=== PATIENT | female | born 1965 | race Caucasian/White ===

== ENCOUNTER 2023-06-14 16:27 | Inpatient (IN) | payer MEDICARE, OTHER ==
[~2023-06-14] VITALS: Ht 160 cm; Wt 73.1 kg
[~2023-06-14 16:27] MED LIST: ALPR1; Bactrim Ds Tab1 EACH PO; CIPR500 PO; CYCL10 PO; Citrate Of Mag300 ML PO; DANA200 PO; DIAZ5 PO; DULO30; DULO60 PO; Dulcolax5 MG PO; GABA300 PO; HYDACE10B PO; HYDACE5; HYDACE5 PO; METH10 PO; Miralax17 GM PO; NAPR500 PO; OXYACE5T PO; OXYC10ER PO; OXYMORPHONE HCL10 MG PO; PARO20 PO; PROACE100; PROM25 PO; Pyridium200 MG PO; SOMA350 MG PO; TRAM50 PO; TRAZ100
[2023-06-14 17:43] LABS: BASOPHILS ABSOLUTE AUTO 0.14 K/mm3 (0.00-0.23); BASOPHILS PERCENT AUTO 1 % (0-2); EOSINOPHILS PERCENT AUTO 0 % (0-6); Hemoglobin 19.9 g/dL (11.5-16.0); IMMATURE GRAN ABSOLUTE AUTO 0.39 K/mm3 (0.00-0.10); IMMATURE GRAN PERCENT AUTO 2 % (0-1); LYMPHOCYTES PERCENT AUTO 8 % (21-46); MONOCYTES PERCENT AUTO 11 % (4-13); Mean Corpuscular HGB Conc 33.3 g/dL (31.5-36.5); Mean Corpuscular Volume 90 fL (80-100); NEUTROPHILS ABSOLUTE AUTO 18.49 K/mm3 (1.96-9.15); NEUTROPHILS PERCENT AUTO 79 % (41-73); Platelet Count 207 K/mm3 (150-400); RDW Standard Deviation 45.4 fL (35.1-46.3); Red Blood Cell Count 6.63 M/mm3 (3.80-5.20); White Blood Cell Count 23.42 K/mm3 (4.00-11.30)
[2023-06-14 17:46] LABS: Hematocrit 59.7 % (33.0-51.0)
[2023-06-14 17:51] LABS: Albumin, Blood 2.8 g/dL (3.4-5.0); Albumin/Globulin Ratio 0.8 (0.8-1.8); Bilirubin, Total 0.9 mg/dL (0.1-1.0); Calcium, Blood 9.1 mg/dL (8.5-10.1); Creatinine, Blood 2.59 mg/dL (0.40-1.00); Globulin, Blood 3.3 g/dL (2.2-4.0); Potassium, Blood 5.3 mmol/L (3.5-5.5); Total Protein, Blood 6.1 g/dL (6.4-8.2)
[2023-06-14 17:56] LABS: Source, Urine Fem Cath
[2023-06-14 18:03] LABS: Appearance, Urine Cloudy (Clear); Blood, Urine 5+ (Neg); Color, Urine Amber (P-Yellow); Glucose Qualitative, Urine Neg (Neg); Ketones, Urine 2+ (Neg); Leukocyte Esterase, Urine 1+ (Neg); Nitrite, Urine Pos (Neg); Protein, Urine 3+ (Neg); Specific Gravity, Urine 1.025 (1.003-1.022); Urobilinogen, Urine 2+ (Normal)
[2023-06-14 18:10] LABS: Bilirubin, Urine 2+ (Neg)
[2023-06-14 18:13] LABS: Bacteria Many /hpf; Squamous Epithelial Cells Not Seen /hpf (Few); Transitional Epithelial Cells Rare /hpf (0-Rare)
[2023-06-14 18:31] LABS: Base Excess Venous -1.4 mmol/L; Bicarbonate Venous 22.6 mmol/L (24.0-30.0); PCO2 Venous 43.4 mmHg (38-42); pH Blood Venous 7.35 (7.34-7.37)
[2023-06-14 18:51] LABS: U Buprenorphine Screen DETECTED; U Cannabinoids Screen DETECTED; U Opiates Screen DETECTED
[2023-06-14 18:52] LABS: U Amphetamine Screen Not Detected; U Barbituate Screen Not Detected; U Benzodiazapine Screen Not Detected; U Cocaine Screen Not Detected; U Methadone Screen Not Detected; U Methamphetamine Screen Not Detected; U Oxycodone Screen Not Detected; U Phencyclidine Screen Not Detected
[2023-06-14] MEDS ORDERED: PHENA200 PO (21:17)
[2023-06-14] MEDS ORDERED: Cipro500 MG PO (21:18)
[2023-06-14] MEDS ORDERED: HYDROCODONE-AC1 EAC7 PO (21:20)
[2023-06-14] MEDS ORDERED: BUPRENORPHINE HC2 MG SL (21:24)
[2023-06-14 21:33] LABS: Influenza A, PCR NEGATIVE (NEGATIVE); Influenza B, PCR NEGATIVE (NEGATIVE); Resp Syncytial Virus, PCR NEGATIVE (NEGATIVE); SARS-Cov-2 (COVID-19) PCR, MMC NEGATIVE (NEGATIVE)
[2023-06-14 22:40] VITALS: BP 185/104
[2023-06-14 22:45] VITALS: BP 164/109
[2023-06-14 23:01] VITALS: BP 167/92
--- NOTE | 2023-06-14 23:11 | NUR ---
ARRIVAL TO UNIT AFTER RECEIVING REPORT FROM [facility] RN, PATIENT TRANSFERRED TO UNIT AT APPROX 2225. TRANSFERRED TO HOSPITAL BED VIA SLIDER SHEET. PATIENT YELLING LOUDLY WITH ANY STIMULI, NOT ABLE TO ANSWER QUESTIONS. NOT ABLE TO ORIENT TO CURRENT SITUATION. TELEMETRY SHOWING SINUS TACH 100's-110's. BP ELEVATED, SBP 160's-180's. IV HYDRALAZINE ADMINISTERED PER EMAR. BP DECREASE, SBP 160's. IS ON 4L VIA NASAL CANNULA, SATS 90-92%. COMPLETE BEDBATH PERFORMED. DRY, CRACKING SKIN TO LIPS, EYES. ORAL CARE PROVIDED. SCATTERED BRUISING THROUGHOUT, PICTURES OBTAINED. SEE CHART. ATTENDS PLACED. IVF AND ABX INFUSING PER EMAR. BED ALARM ON. CALL LIGHT IN REACH.
[2023-06-14 23:19] VITALS: BP 163/103
--- NOTE | 2023-06-14 23:36 | NUR ---
PATIENT's STEP-FATHER, AILIN, TO BEDSIDE. THIS RN PROVIDED UPDATE REGARDING PLAN OF CARE. AILIN REPORTING THAT THE PATIENT WAS PRESCRIBED AN ANTIBIOTIC LAST WEEK FOR A UTI. HE HAD CALLED HER LAST NIGHT, AND SHE DID NOT ANSWER THE PHONE. HE ASSUMED SHE WAS SLEEPING, AND CAME OVER THE NEXT DAY (TODAY) TO CHECK ON HER. IN WHICH, SHE WAS FOUND DOWN ON THE TOILET. PATIENT IS NORMALLY ALERT, INDEPENDENT AT BASELINE.
[2023-06-14] MEDS ORDERED: DULO60 (23:46)
[2023-06-14] MEDS ORDERED: GABA300 PO (23:47)
[2023-06-14] MEDS ORDERED: Carisoprodol350 MG PO (23:47)
[2023-06-14] MEDS ORDERED: OXYMORPHONE HCL10 MG PO (23:47)
[2023-06-14] MEDS ORDERED: PROM25 PO (23:48)
[2023-06-14] MEDS ORDERED: POLYETHYLENE G500 G1 (23:48)
[2023-06-14] MEDS ORDERED: SULTRIDS PO (23:48)
[2023-06-14] MEDS ORDERED: DANA200 PO (23:48)
[2023-06-14] MEDS ORDERED: MAGCIT300 PO (23:49)
--- NOTE | 2023-06-14 23:56 | NUR ---
LIMITED ADMISSION HISTORY DUE TO ALTERED MENTAL STATUS. GATHERED INFORMATION FROM INFORMATION PROVIDED FROM HER STEP-FATHER, AILIN AND ED ELECTRONIC RECORDS.
[2023-06-15] VITALS (9 sets, daily range): BP systolic 109–181; BP diastolic 87–107
--- NOTE | 2023-06-15 01:21 | NUR ---
BANERJEE TO EVALUATE PATIENT. THIS RN NOTIFIED OF ELEVATED BLOOD PRESSURE. NO NEW ORDERS RECEIVIED AT THIS TIME, SUSPECTS ELEVATED BLOOD PRESSURE TO BE RELATED TO DISTRESS THAT OCCURS WITH ANY STIMULI. MD REQUESTING CROOK CATHETER TO BE PLACED FOR STRICT I/O's DUE TO DEHYDRATION. WILL PLACE PER ORDER.
[2023-06-15 02:07] LABS: BASOPHILS ABSOLUTE AUTO 0.17 K/mm3 (0.00-0.23); BASOPHILS PERCENT AUTO 1 % (0-2); EOSINOPHILS ABSOLUTE AUTO 0.11 K/mm3 (0.00-0.68); EOSINOPHILS PERCENT AUTO 1 % (0-6); Hemoglobin 19.7 g/dL (11.5-16.0); IMMATURE GRAN ABSOLUTE AUTO 0.25 K/mm3 (0.00-0.10); IMMATURE GRAN PERCENT AUTO 1 % (0-1); LYMPHOCYTES ABSOLUTE AUTO 1.52 K/mm3 (0.84-5.20); LYMPHOCYTES PERCENT AUTO 7 % (21-46); MONOCYTES ABSOLUTE AUTO 1.85 K/mm3 (0.16-1.47); MONOCYTES PERCENT AUTO 8 % (4-13); Mean Corpuscular HGB Conc 33.7 g/dL (31.5-36.5); Mean Corpuscular Volume 89 fL (80-100); Mean Platelet Volume 10.1 fL (9.1-12.4); NEUTROPHILS ABSOLUTE AUTO 18.01 K/mm3 (1.96-9.15); NEUTROPHILS PERCENT AUTO 82 % (41-73); Platelet Count 198 K/mm3 (150-400); RDW Coefficient Variation 14.1 % (11.7-14.2); RDW Standard Deviation 44.4 fL (35.1-46.3); Red Blood Cell Count 6.56 M/mm3 (3.80-5.20); White Blood Cell Count 21.91 K/mm3 (4.00-11.30)
[2023-06-15 02:12] LABS: Source, Urine Foley catheter
[2023-06-15 02:14] LABS: Hematocrit 58.5 % (33.0-51.0)
[2023-06-15 02:22] LABS: Bilirubin, Urine Neg (Neg); Blood, Urine 5+ (Neg); Glucose Qualitative, Urine 1+ (Neg); Ketones, Urine Neg (Neg); Leukocyte Esterase, Urine Neg (Neg); Nitrite, Urine Neg (Neg); Protein, Urine 2+ (Neg); Urobilinogen, Urine NORM (Normal)
[2023-06-15 02:22] LABS: Albumin, Blood 2.4 g/dL (3.4-5.0); Albumin/Globulin Ratio 0.6 (0.8-1.8); Bilirubin, Total 0.6 mg/dL (0.1-1.0); Bun/Creatinine Ratio 23.1 (12.0-20.0); Calcium, Blood 8.7 mg/dL (8.5-10.1); Creatinine, Blood 2.08 mg/dL (0.40-1.00); Globulin, Blood 3.8 g/dL (2.2-4.0); Potassium, Blood 5.1 mmol/L (3.5-5.5); Total Protein, Blood 6.2 g/dL (6.4-8.2)
[2023-06-15 02:30] LABS: Appearance, Urine Hazy (Clear); Color, Urine Amber (P-Yellow)
[2023-06-15 02:31] LABS: Bacteria Few /hpf; Red Blood Cells, Urine 0-2 /hpf (0-2); Squamous Epithelial Cells Not Seen /hpf (Few); White Blood Cells, Urine 0-2 /hpf (0-5)
[2023-06-15 05:13] LABS: Bun/Creatinine Ratio 24.9 (12.0-20.0); Calcium, Blood 8.4 mg/dL (8.5-10.1); Creatinine, Blood 1.97 mg/dL (0.40-1.00); Potassium, Blood 4.9 mmol/L (3.5-5.5)
--- NOTE | 2023-06-15 05:34 | NUR ---
SHIFT SUMMARY NO ACUTE CHANGES SINCE PREVIOUS NOTES. PATIENT CONTINUING TO ALTERNATE BETWEEN PERIODS OF SLEEP AND LOUDLY YELLING OUT. PATIENT IS BEGINNING TO RECOGNIZE HER NAME, AND MUMBLE OUT SMALL WORDS, SUCH "HEY," BUT UNABLE TO REORIENT OR CONSOLE WHILE YELLING. SEE PREVIOUS NOTE REGARDING ELEVATED BP. PATIENT TENDS TO EXPERIENCE INCREASED DISTRESS WHILE OBTAINING BLOOD PRESSURE, SBP 160's. ABLE TO OBTAIN BLOOD PRESSURE ONCE WITHOUT CAUSING DISTRESS, SBP 110's. TELEMETRY SHOWING SINUS 90's-100's AT REST, RATE INCREASE 110's WITH YELLING. REMAINS ON 4L VIA NASAL CANNULA, SATS >92%. PATIENT BEGINNING TO MOVE HERSELF MORE IN BED, IS NOT PULLING AT LINES/DEVICES OR ATTEMPTING TO GET OUT OF BED OF THIS TIME. CROOK CATHETER IN PLACE, DRAINING SMALL AMOUNTS OF DARK LIANG URINE WITH SEDIMENT. MADE AWARE WHILE ROUNDING. IVF INFUSING AT 75ML/HR. SMALL SMEAR BM THIS SHIFT. ATTENDS IN PLACE, CHANGING NEEDED TO KEEP C/D/I. BED ALARM ON. WILL REPORT TO ONCOMING RN.
--- NOTE | 2023-06-15 16:50 | NUR ---
SHIFT SUMMARY: PT RESPONSIVE TO VERBAL/PAINFUL SITMULI MAJORITY OF THE SHIFT. CONTINUING TO YELL OUT, UNABLE TO TELL THIS RN ORIENTATION QUESTIONS. APPROX 1500 PT CONTINUING TO YELL, NOW ABLE TO ANSWER ORIENTATION QUESTIONS. ABLE TO TELL THIS RN NAME, , AND LOCATION. PT UNAWARE REASON FOR ADMISSION, DOES NOT RECALL EVENTS PRIOR. STRENGTH WEAK, EQUAL BILATERALLY. PT HYPERTENSIVE THROUGHOUT THE DAY, MEDICATED WITH PRN HYDRALAZINE PER EMAR, HR SR 90'S, AFEBRILE, SPO2 >94% ON 2L NC. RESPIRATIONS EVEN AND UNLABORED AT REST. PULSES STRONG AND EQUAL THROGHOUT. PT WITH HX OF ANGIOEDEMA, NO FACIAL SWELLING NOTED THIS SHIFT. REPOS Q2 TO MAINTAIN SKIN INTEGRITY. CROOK CATH REMAINS IN PLACE, PATENT AND DRAINING LIANG COLORED URINE TO GRAVITY. NO BM. STEP DAD IN THIS AFTERNOON AND UPDATED ON PT CARE. PT REMAINS NPO DUE TO ASPIRATION RISK. BED ALARM ON FOR SAFETY, BED IN LOW, CALL LIGHT IN REACH, WILL REPORT TO ONCOMING RN.
[2023-06-16 04:58] VITALS: BP 142/87
--- NOTE | 2023-06-16 06:24 | NUR ---
SHIFT SUMMARY ASSUMED CARE OF PT AT 1900. PT WAS VERY DROWSEY AT START OF SHIFT BUT STARTED TO AWAKEN. AT 2300 PT STEP FATHER CAME TO BED AND PT WAS FULLY A/OX4 AND TALKING. PT UNDATED ON CONDITION AND EVENTS. PT UNABEL TO REMEMBER EVENTS FULLY. HOSPITALIST EXPRESSED CONCERNS OF PT POSSIBLY GOING THROUGH WITHDRAWL. ORDRED MEDICATIONS PER EMAR. PT EXPRESSED SAME CONCERNED AND FELT BETTER AFTER MEDICATIONS.
[2023-06-16 08:14] LABS: BASOPHILS ABSOLUTE AUTO 0.08 K/mm3 (0.00-0.23); BASOPHILS PERCENT AUTO 1 % (0-2); EOSINOPHILS ABSOLUTE AUTO 0.03 K/mm3 (0.00-0.68); EOSINOPHILS PERCENT AUTO 0 % (0-6); Hemoglobin 16.4 g/dL (11.5-16.0); IMMATURE GRAN PERCENT AUTO 1 % (0-1); LYMPHOCYTES ABSOLUTE AUTO 1.38 K/mm3 (0.84-5.20); LYMPHOCYTES PERCENT AUTO 8 % (21-46); MONOCYTES ABSOLUTE AUTO 1.54 K/mm3 (0.16-1.47); MONOCYTES PERCENT AUTO 9 % (4-13); Mean Corpuscular HGB Conc 33.5 g/dL (31.5-36.5); Mean Corpuscular Volume 90 fL (80-100); Mean Platelet Volume 10.5 fL (9.1-12.4); NEUTROPHILS ABSOLUTE AUTO 13.48 K/mm3 (1.96-9.15); NEUTROPHILS PERCENT AUTO 81 % (41-73); Platelet Count 167 K/mm3 (150-400); RDW Coefficient Variation 14.2 % (11.7-14.2); RDW Standard Deviation 45.9 fL (35.1-46.3); Red Blood Cell Count 5.46 M/mm3 (3.80-5.20); White Blood Cell Count 16.61 K/mm3 (4.00-11.30)
[2023-06-16 08:40] VITALS: BP 130/84
[2023-06-16 09:19] LABS: Bun/Creatinine Ratio 35.6 (12.0-20.0); Calcium, Blood 8.4 mg/dL (8.5-10.1); Creatinine, Blood 1.04 mg/dL (0.40-1.00); Potassium, Blood 4.3 mmol/L (3.5-5.5)
[2023-06-16 17:19] VITALS: BP 137/91
--- NOTE | 2023-06-16 17:39 | NUR ---
PATIENT ARRIVED TO UNIT AT THIS TIME. PATIENT IS A&OX4. SHE IS ON 2L NC WITH >90% OXYGEN SATS. PATIENT REPORTS "BURNING" WHEN SHE VOIDS WHICH IS MANAGED WITH HER PO URINARY PAIN RELIEF PILL WELL RECIEVING IV ABX. SHE IS TOLERATING HER CLEAR LIQUIDS DIET. HER ABD IS DISTENDED BUT HAS HYPERACTIVE BOWEL TONES. SHE REPORTS "THIS IS NORMAL FOR ME BECAUSE OF MY ANGIOEDEMA". DENIES NAUSEA OR VOMITING. SHE IS A SBA WITH FWW AND GAIT BELT TO THE BATHROOM. PATIENT IS LAYING IN BED WITH CALL LIGHT IN REACH AND FAMILY AT BEDSIDE.
[2023-06-16 19:31] VITALS: BP 159/84
[2023-06-17 03:04] VITALS: BP 165/97
[2023-06-17 03:59] VITALS: BP 154/89
[2023-06-17 04:50] LABS: BASOPHILS ABSOLUTE AUTO 0.07 K/mm3 (0.00-0.23); BASOPHILS PERCENT AUTO 1 % (0-2); EOSINOPHILS ABSOLUTE AUTO 0.03 K/mm3 (0.00-0.68); EOSINOPHILS PERCENT AUTO 0 % (0-6); Hematocrit 50.1 % (33.0-51.0); Hemoglobin 16.3 g/dL (11.5-16.0); IMMATURE GRAN ABSOLUTE AUTO 0.08 K/mm3 (0.00-0.10); IMMATURE GRAN PERCENT AUTO 1 % (0-1); LYMPHOCYTES ABSOLUTE AUTO 1.34 K/mm3 (0.84-5.20); LYMPHOCYTES PERCENT AUTO 10 % (21-46); MONOCYTES PERCENT AUTO 9 % (4-13); Mean Corpuscular HGB 29.4 pg (26.0-34.0); Mean Corpuscular HGB Conc 32.5 g/dL (31.5-36.5); Mean Corpuscular Volume 90 fL (80-100); Mean Platelet Volume 10.5 fL (9.1-12.4); NEUTROPHILS PERCENT AUTO 81 % (41-73); Platelet Count 190 K/mm3 (150-400); RDW Coefficient Variation 13.9 % (11.7-14.2); RDW Standard Deviation 46.5 fL (35.1-46.3); Red Blood Cell Count 5.54 M/mm3 (3.80-5.20); White Blood Cell Count 14.02 K/mm3 (4.00-11.30)
[2023-06-17 05:22] LABS: Albumin, Blood 2.4 g/dL (3.4-5.0); Albumin/Globulin Ratio 0.7 (0.8-1.8); Bilirubin, Total 0.7 mg/dL (0.1-1.0); Bun/Creatinine Ratio 25.9 (12.0-20.0); Calcium, Blood 8.8 mg/dL (8.5-10.1); Creatinine, Blood 0.85 mg/dL (0.40-1.00); Globulin, Blood 3.3 g/dL (2.2-4.0); Total Protein, Blood 5.7 g/dL (6.4-8.2)
--- NOTE | 2023-06-17 05:33 | NUR ---
SHIFT SUMMARY NOC. PT A/O X4 THIS SHIFT. PT IS AFEBRILE AND VITALS STABLE. PT REPORTS DYSURIA IMPROVED WITH MEDICATION AND IS VOIDING. PT TOLERATING CLEAR LIQUIDS. PT HAS MODERATE ABDOMINAL DISTENTION WITH TENDERNESS. CT OF ABD AND PELVIS ORDERED AND TO BE DONE LATER THIS AM. PT REPORTED MILD SOB ON EXERTION, PT DOES NOT DESAT ON 2 LITERS VIA N/C. PT RESTED WITH EYES CLOSED AND CALL LIGHT IN REACH.
[2023-06-17 07:15] VITALS: BP 147/93
[2023-06-17 16:52] VITALS: BP 163/94
[2023-06-17 17:58] VITALS: BP 138/99
[2023-06-17 19:08] VITALS: BP 156/88
--- NOTE | 2023-06-17 20:01 | NUR ---
PT HAS BEEN STABLE THIS SHIFT. HYPERTENSIVE AT TIMES BUT NEVER REQUIRING PRN BP MEDS. PT AMBULATORY IN ROOM AND HALLWAY. PT STARTED ON BOWEL CARE WITH BM X2 TODAY, DARK BROWN. PT VOIDING WELL WITH SLIGHT DYSURIA. IV SL PER ORDERS. DIET TO ADVANCE TOLERATED. FL DINNER MONIQUE WELL. PAIN CONTROLLED WITH SCHEDULED MEDS. USES CALL LIGHT APPROPRIATELY PRN.
[2023-06-18 02:25] VITALS: BP 144/85
[2023-06-18 05:25] LABS: BASOPHILS ABSOLUTE AUTO 0.08 K/mm3 (0.00-0.23); BASOPHILS PERCENT AUTO 1 % (0-2); EOSINOPHILS ABSOLUTE AUTO 0.07 K/mm3 (0.00-0.68); EOSINOPHILS PERCENT AUTO 1 % (0-6); Hematocrit 48.8 % (33.0-51.0); Hemoglobin 16.2 g/dL (11.5-16.0); IMMATURE GRAN ABSOLUTE AUTO 0.16 K/mm3 (0.00-0.10); IMMATURE GRAN PERCENT AUTO 1 % (0-1); LYMPHOCYTES ABSOLUTE AUTO 1.68 K/mm3 (0.84-5.20); LYMPHOCYTES PERCENT AUTO 12 % (21-46); MONOCYTES ABSOLUTE AUTO 1.34 K/mm3 (0.16-1.47); MONOCYTES PERCENT AUTO 10 % (4-13); Mean Corpuscular HGB 30.1 pg (26.0-34.0); Mean Corpuscular HGB Conc 33.2 g/dL (31.5-36.5); Mean Corpuscular Volume 91 fL (80-100); Mean Platelet Volume 10.5 fL (9.1-12.4); NEUTROPHILS ABSOLUTE AUTO 10.78 K/mm3 (1.96-9.15); NEUTROPHILS PERCENT AUTO 76 % (41-73); Platelet Count 236 K/mm3 (150-400); RDW Coefficient Variation 13.7 % (11.7-14.2); RDW Standard Deviation 45.6 fL (35.1-46.3); Red Blood Cell Count 5.38 M/mm3 (3.80-5.20); White Blood Cell Count 14.11 K/mm3 (4.00-11.30)
[2023-06-18 07:10] VITALS: BP 135/91
--- NOTE | 2023-06-18 07:39 | NUR ---
SHIFT SUMMARY NOC. PT A/O X4. PT VOIDING URINE AND TOLERATING FULL LIQUID DIET. NO BM THIS SHIFT, PT REPORTS PASSING GAS PER RECTUM. PT AMBULATING IN THE ROOM. PT REPORT NICOTINE CRAVINGS SHE SMOKES 1PPD AT BASELINE. PT VERBALIZED WANTING TO QUIT AND RECEIVE ORDERS FOR NICOTINE PATCH. PASSED THIS ON TO DAY SHIFT RN AND VERBALIZED FOLLOWING UP. PT RESTED WITH EYES CLOSED AND CALL LIGHT IN REACH.
[2023-06-18] MEDS ORDERED: NICO21TP TOP (12:05)
--- NOTE | 2023-06-18 12:59 | NUR ---
DISCHARGE SUMMARY S/P SBO, A/OX4, VSS, TOLERATING PO, VOIDING WELL YELLOW URINE THAT IS PAID SEARCH SPECIALIST THAN IT WAS AT TIME OF ADMISSION, INDEPENDENT IN THE ROOM, HAVING MULTIPLE BM'S PER NOC RN REPORT. DISCUSSED DISCHARGE INSTRUCTIONS WITH THE PATIENT INCLUDING HOME CARE, MEDICATIONS WHICH WERE FAXED TO [facility] PER PT REQUEST, AND FOLLOW UP WITH HER PRIMARY CARE PROVIDER WITHIN 1 WEEK PER ATTENDING INSTRUCTIONS. IV ACCESS REMOVED, NO QUESTIONS AT THIS TIME, ESCORTED OUT VIA WC TO PRIVATE AUTO TO GO HOME.
== END 2023-06-18 12:01 | disposition home or self-care (01) | DRG 871 ==
LOC: ER 16:27 → PCU 21:28 → SURS 21:28 → PCU 22:24 → SURS 06-16 16:50
PROVIDERS: Emergency Medicine; Family Medicine; Hospitalist; Student in an Organized Health Care Education/Training Program; ADMIT Internal Medicine
DX: A41.9 Sepsis, unspecified organism (principal); G92.8 Other toxic encephalopathy; J18.9 Pneumonia, unspecified organism; N17.9 Acute kidney failure, unspecified; N39.0 Urinary tract infection, site not specified; E87.21 Acute metabolic acidosis; S36.119A Unspecified injury of liver, initial encounter; M62.82 Rhabdomyolysis; R65.20 Severe sepsis without septic shock; I10 Essential (primary) hypertension; G89.29 Other chronic pain; F32.9 Major depressive disorder, single episode, unspecified; D84.1 Defects in the complement system; R79.89 Other specified abnormal findings of blood chemistry; R74.8 Abnormal levels of other serum enzymes; Z11.52 Encounter for screening for COVID-19; Z79.2 Long term (current) use of antibiotics; Z79.891 Long term (current) use of opiate analgesic; Z79.899 Other long term (current) drug therapy; Z88.7 Allergy status to serum and vaccine; Z87.891 Personal history of nicotine dependence; Z90.89 Acquired absence of other organs; Z98.890 Other specified postprocedural states; X58.XXXA Exposure to other specified factors, initial encounter
CPT/HCPCS: 0241U; 36415; 70450; 71045; 74176; 80048; 80053; 81001; 82140; 82550; 82803; 83605; 83690; 83880; 84145; 85025; 87040; 87086; 93005; 93010; 93306; 96361; 96365; 99285-25; A9270; J0360; J0456; J0696; J1200; J1650; J3411; J7030; J7050; J7120; P9612

== ENCOUNTER 2024-09-30 16:09 | Day surgery (SDC) | payer MEDICARE, OTHER ==
[~2024-09-30 16:09] MED LIST changes: +BUPRENORPHINE HC2 MG SL; +Carisoprodol350 MG PO; +Cipro500 MG PO; +DULO60; +HYDROCODONE-AC1 EAC7 PO; +MAGCIT300 PO; +NICO21TP TOP; +PHENA200 PO; +POLYETHYLENE G500 G1; +SULTRIDS PO
== END 2024-09-30 22:30 | disposition home or self-care (01) ==
LOC: RAD 16:09
DX: M17.0 Bilateral primary osteoarthritis of knee (principal); M41.9 Scoliosis, unspecified
CPT/HCPCS: 36415; 73562-LT; 73562-RT; 80053; 80061; 81001; 84443; 84481; 85025; 87077; 87086; 87186

== ENCOUNTER 2025-03-23 22:05 | Inpatient (IN) | payer MEDICARE, OTHER ==
[~2025-03-23] VITALS: Ht 175.3 cm; Wt 94.6 kg
[~2025-03-23 22:05] MED LIST changes: -POLYETHYLENE G500 G1; +POLYETHYLENE G500 G1 PO
[2025-03-23] MEDS ORDERED: Tranexamic Acid 100 ML IV ONE (22:20)
[2025-03-23 22:32] LABS: pH Blood Venous 7.31 (7.34-7.37)
[2025-03-23 22:35] LABS: BASOPHILS ABSOLUTE AUTO 0.10 K/mm3 (0.00-0.23); BASOPHILS PERCENT AUTO 1 % (0-2); EOSINOPHILS ABSOLUTE AUTO 0.18 K/mm3 (0.00-0.68); EOSINOPHILS PERCENT AUTO 2 % (0-6); Hematocrit 55.5 % (33.0-51.0); Hemoglobin 17.4 g/dL (11.5-16.0); IMMATURE GRAN ABSOLUTE AUTO 0.06 K/mm3 (0.00-0.10); IMMATURE GRAN PERCENT AUTO 1 % (0-1); LYMPHOCYTES ABSOLUTE AUTO 3.26 K/mm3 (0.84-5.20); LYMPHOCYTES PERCENT AUTO 34 % (21-46); MONOCYTES ABSOLUTE AUTO 0.81 K/mm3 (0.16-1.47); MONOCYTES PERCENT AUTO 9 % (4-13); Mean Corpuscular HGB Conc 31.4 g/dL (31.5-36.5); Mean Corpuscular Volume 92 fL (80-100); NEUTROPHILS ABSOLUTE AUTO 5.09 K/mm3 (1.96-9.15); NEUTROPHILS PERCENT AUTO 54 % (41-73); NRBC ABSOLUTE 0.00 K/mm3 (0.00-0.02); NRBC Auto 0.0 /100 WBC (0.0-0.2); Platelet Count 445 K/mm3 (150-400); RDW Coefficient Variation 13.6 % (11.7-14.2); RDW Standard Deviation 46.1 fL (35.1-46.3)
[2025-03-23] MEDS ORDERED: Midazolam HCL 50 MG in NS 40 ML IV PRN (22:35)
[2025-03-23 22:46] LABS: Alanine Aminotransfer (ALT/SGP 38.0 U/L (12-78); Albumin, Blood 4.1 g/dL (3.4-5.0); Albumin/Globulin Ratio 1.1 (0.8-1.8); Anion Gap 6.0 mmol/L (3-11); Aspartate Aminotrans (AST/SGOT 34.0 U/L (12-37); Bilirubin, Total 0.5 mg/dL (0.1-1.0); Blood Urea Nitrogen 10.0 mg/dL (8-24); CO2, Blood 34.0 mmol/L (21-32); Calcium, Blood 9.8 mg/dL (8.5-10.1); Chloride, Blood 100.0 mmol/L (98-108); Creatinine, Blood 0.75 mg/dL (0.40-1.00); Globulin, Blood 3.8 g/dL (2.2-4.0); Glucose, Blood 149.0 mg/dL (70-99); Potassium, Blood 4.0 mmol/L (3.5-5.5); Sodium, Blood 136.0 mmol/L (136-145); Total Protein, Blood 7.9 g/dL (6.4-8.2)
[2025-03-23] MEDS ORDERED: DiphenhydrAMINE HCl 50 MG/ML 1ML Vial IV SCH (23:00)
[2025-03-23] MEDS ORDERED: NS 1,000 ML IV SCH (23:20)
[2025-03-23] MEDS ORDERED: Cetylpyridinium Chloride 1 EA MISC MT SCH (23:40)
[2025-03-23] MEDS ORDERED: FLU VACC TS2025-26(6MOS UP)/PF 45 MCG/0.5 ML SYRINGE IM SCH (23:45)
[2025-03-24] VITALS (89 sets, daily range): BP systolic 87–147; BP diastolic 54–99
[2025-03-24] MEDS ORDERED: Hydrogen Peroxide 1.5 % Solution MT SCH
[2025-03-24] MEDS ORDERED: NS 1,000 ML IV SCH (00:10)
[2025-03-24] MEDS ORDERED: Midazolam HCl 1MG / ML 2ML Vial IV ONE (00:20)
[2025-03-24] MEDS ORDERED: FentaNYL Citrate 50 MCG/ML 2 ML Injection IV ONE (00:20)
--- NOTE | 2025-03-24 01:03 | NUR ---
MD ORDERS SPOKE WITH DR WHATLEY REGARDING PAIN AND ANXIETY. RECEIVED ORDERS FOR FENTANYL AND ATIVAN. DR WHATLEY DISCONTINUED IV FLUID BOLUS AND CHANGED TO IVF AT 125 ML/HR FOR ONE LITER ONLY.
[2025-03-24] MEDS ORDERED: FentaNYL Citrate 50 MCG/ML 2 ML Injection IV PRN ×2 (01:05→09:45)
[2025-03-24] MEDS ORDERED: LORazepam 2 MG/ML 1ML Injection IV PRN ×2 (01:05→09:45)
[2025-03-24] MEDS ORDERED: DULO60 PO (02:33)
[2025-03-24] MEDS ORDERED: BACL10 PO (02:35)
[2025-03-24] MEDS ORDERED: HYDHCL25 PO (02:37)
[2025-03-24 02:54] LABS: BASOPHILS ABSOLUTE AUTO 0.08 K/mm3 (0.00-0.23); BASOPHILS PERCENT AUTO 1 % (0-2); EOSINOPHILS ABSOLUTE AUTO 0.01 K/mm3 (0.00-0.68); EOSINOPHILS PERCENT AUTO 0 % (0-6); Hematocrit 50.6 % (33.0-51.0); Hemoglobin 16.4 g/dL (11.5-16.0); IMMATURE GRAN ABSOLUTE AUTO 0.07 K/mm3 (0.00-0.10); IMMATURE GRAN PERCENT AUTO 1 % (0-1); LYMPHOCYTES ABSOLUTE AUTO 1.00 K/mm3 (0.84-5.20); LYMPHOCYTES PERCENT AUTO 8 % (21-46); MONOCYTES ABSOLUTE AUTO 0.16 K/mm3 (0.16-1.47); MONOCYTES PERCENT AUTO 1 % (4-13); Mean Corpuscular HGB Conc 32.4 g/dL (31.5-36.5); Mean Corpuscular Volume 89 fL (80-100); NEUTROPHILS ABSOLUTE AUTO 11.50 K/mm3 (1.96-9.15); NEUTROPHILS PERCENT AUTO 90 % (41-73); NRBC ABSOLUTE 0.00 K/mm3 (0.00-0.02); NRBC Auto 0.0 /100 WBC (0.0-0.2); Platelet Count 384 K/mm3 (150-400); RDW Coefficient Variation 13.3 % (11.7-14.2); RDW Standard Deviation 43.9 fL (35.1-46.3)
--- NOTE | 2025-03-24 03:08 | NUR ---
PT ARRIVAL TO ICU 5: PT ARRIVED FROM ED VIA GURNEY AT 0020. PT INTUBATED AND SEDATED, PROPOFOL GTT INFUSING AT 50 MCG/KG/MIN, VERSED AT 8 MG/HR. REPORT FROM ED RN THAT PT WAS INITIALLY HARD TO SEDATE. RASS -4 AT TIME OF ARRIVAL. SEDATION DECREASED, SEE FLOWSHEET FOR TITRATIONS. VSS. MONITOR SHOWS SINUS RYTHM TO SINUS ADAM, RATE 50-60s. SPO2>90% ON VENT, SETTINGS ACVC 16/400/5 AT 50%. SKIN OVERALL INTACT, SATISH RN SECOND RN CHECK. SWELLING TO FACE/NECK, PICTURE IN CHART. TEMP CROOK IN PLACE DRAINING YELLOW URINE TO GRAVITY. PT STEP FATHER- AILIN AT BEDSIDE ABLE TO ASSIST W/ PT INFORMATION, ABLE TO HELP UPDATE MED REC. PT NECKLACE SENT HOME WITH HIM. WILL UPDATED NEEDED.
[2025-03-24] MEDS ORDERED: EpiNEPhrine 1 MG/1 ML 1ML Vial IM ONE (03:10)
[2025-03-24 03:22] LABS: Alanine Aminotransfer (ALT/SGP 31.0 U/L (12-78); Albumin, Blood 3.3 g/dL (3.4-5.0); Albumin/Globulin Ratio 1.1 (0.8-1.8); Anion Gap 7.0 mmol/L (3-11); Aspartate Aminotrans (AST/SGOT 28.0 U/L (12-37); Bilirubin, Total 0.5 mg/dL (0.1-1.0); Blood Urea Nitrogen 11.0 mg/dL (8-24); CO2, Blood 28.0 mmol/L (21-32); Calcium, Blood 9.4 mg/dL (8.5-10.1); Chloride, Blood 105.0 mmol/L (98-108); Creatinine, Blood 0.63 mg/dL (0.40-1.00); Globulin, Blood 3.1 g/dL (2.2-4.0); Glucose, Blood 164.0 mg/dL (70-99); Potassium, Blood 4.2 mmol/L (3.5-5.5); Sodium, Blood 136.0 mmol/L (136-145); Total Protein, Blood 6.4 g/dL (6.4-8.2)
--- NOTE | 2025-03-24 05:38 | NUR ---
SHIFT SUMMARY: PT CONTINUES TO BE INTUBATED AND SEDATED, PROPOFOL GTT AT 30 MCG/KG/MIN, VERSED ON SB. RASS -2 TO -3, PT ABLE TO OPEN HER EYES A LITTLE AND SHAKE HEAD YES/NO TO SOME QUESTIONS. PT HAS CHRONIC BACK PAIN, MEDICATED PER EMAR. SBP 90s, MAP>65. MONITOR SHOWS SINUS ADAM, RATE 45-50s. DR. WHATLEY AT BEDSIDE THIS AM AND NOTIFIED OF THE PT BEING BRADYCARDIC, NO NEW ORDERS AT THIS TIME. EDEMA CONTIUES IN FACE/NECK. FIO2 INCREASED TO 60% ON VENT TO KEEP SPO2>90%. TEMP CROOK PATENT DRAINING LIANG URINE TO GRAVITY. WILL REPORT TO ONCOMING RN.
[2025-03-24] MEDS ORDERED: C1 ESTERASE INHIBITOR IV ONE ×2 (08:40→12:10)
[2025-03-24] MEDS ORDERED: Enoxaparin 40 MG/0.4 ML SYR SC SCH (09:00)
--- NOTE | 2025-03-24 09:10 | NUR ---
AM NOTE... ASSUMED CARE OF PATIENT AT APPROX 0700. PATIENT A&OX4 AND ABLE TO COMMUNICATE WITH STAFF. PROPOFOL RUNNING PER EMAR. SEE FLOWSHEET FOR TITRATIONS. VENT SETTINGS AC/VC 16/400/5 60% FIO2. SATS >94%. HR SINUS IN THE 40S-50S. BP STABLE WITH MAPS >65. CROOK PATENT AND DRAINING YELLOW URINE TO GRAVITY. PATIENT MEDICATED WITH FENTANYL PER EMAR FOR PAIN.
[2025-03-24] MEDS ORDERED: NS 250 ML IV PRN (09:40)
[2025-03-24] MEDS ORDERED: Morphine Sulfate 20 MG/1ML 1 ML Oral Syringe PT PRN (11:40)
[2025-03-24] MEDS ORDERED: CefTRIAXone Sodium 1,000 MG in NS 100 ML IV SCH (12:00)
[2025-03-24 13:34] LABS: pH Blood Venous 7.37 (7.34-7.37)
[2025-03-24 14:31] LABS: Acinetobacter baumannii DNA Not Detected copy/mL (NOT DETECT); Enterobacter cloacae DNA Not Detected copy/mL (NOT DETECT); Escherichia coli DNA Detected Bin 10^6 copy/mL (NOT DETECT); Haemophilus influenzae DNA Not Detected copy/mL (NOT DETECT); Klebsiella aerogenes DNA Not Detected copy/mL (NOT DETECT); Klebsiella oxytoca DNA Not Detected copy/mL (NOT DETECT); Klebsiella pneumoniae DNA Not Detected copy/mL (NOT DETECT); Moraxella catarrhalis DNA Not Detected copy/mL (NOT DETECT); Proteus sp DNA Not Detected copy/mL (NOT DETECT); Pseudomonas aeruginosa DNA Not Detected copy/mL (NOT DETECT); Serratia marcescens DNA Not Detected copy/mL (NOT DETECT); Staphylococcus aureus DNA Not Detected copy/mL (NOT DETECT); Streptococcus agalactiae DNA Not Detected copy/mL (NOT DETECT); Streptococcus pneumoniae DNA Not Detected copy/mL (NOT DETECT); Streptococcus pyogenes DNA Not Detected copy/mL (NOT DETECT)
[2025-03-24 14:32] LABS: CTX-M Resistance Gene Not Detected; Chlamydia pneumonia Not Detected (NOT DETECT); Human Coronavirus RNA Not Detected (NOT DETECT); Human Metapneumovirus RNA Not Detected (NOT DETECT); IMP Resistance Gene Not Detected; Influenza virus A RNA Not Detected (NOT DETECT); Influenza virus B RNA Not Detected (NOT DETECT); KPC Resistance Gene Not Detected; NDM Resistance Gene Not Detected; OXA-48-like Resistance Gene Not Detected; Respiratory syncytial Vir RNA Not Detected (NOT DETECT); Rhinovirus+Enterovirus RNA Not Detected (NOT DETECT); VIM Resistance Gene Not Detected
[2025-03-24] MEDS ORDERED: Rocuronium Bromide 10 MG/ML 5ML Injection IV ONE (15:38)
[2025-03-24] MEDS ORDERED: Etomidate 2MG / ML 10ML Vial IV ONE (15:38)
--- NOTE | 2025-03-24 18:53 | NUR ---
SHIFT SUMMARY... PATIENT INTUBATED AND SEDATED. RASS -1. PROPOFOL INFUSING PER EMAR. SEE FLOWSHEET FOR TITRATIONS. FENTANYL AND ATIVAN PRN EVERY HOUR FOR PAIN AND SEDATION. PATIENT ABLE TO COMMUNICATE WITH THIS RN WHEN AWAKE. VENT SETTINGS AC/VC 16/400/10 60% FIO2. SPO2 >94%. HR SINUS ADAM IN THE 40S-50S. BP STABLE WITH MAPS >65. TEMP CROOK PATENT AND DRAINING YELLOW URINE TO GRAVITY. DAD AT BEDSIDE THIS SHIFT UPDATED ON PLAN OF CARE.
--- NOTE | 2025-03-24 22:31 | NUR ---
ASSUMPTION OF CARE ASSUMED CARE OF PT APPROX 1900. BEDSIDE REPORT FROM OFFGOING RN. PT RESTING IN BED, VENTILATED AND SEDATED, PROPOFOL INFUSING VIA PIV PER AUG, SEE FLOWSHEET, PT MEDICATED WITH FENTANYL PER AUG FOR PAIN. PT IS AROUSABLE AND ABLE TO COMMUNICATE NEEDS WITH STAFF. HR SINUS ON MONITOR WITH RATE IN THE MID 40S-50S. BP STABLE WITH MAP >65. VENT SETTINGS AC/VC 16/400/10/60% FIO2. SATS >93%. CROOK IN PLACE AND DRAINING TO GRAVITY, CALL LIGHT WITHIN REACH.
[2025-03-25] VITALS (22 sets, daily range): BP systolic 89–155; BP diastolic 47–92
[2025-03-25 03:49] LABS: BASOPHILS ABSOLUTE AUTO 0.01 K/mm3 (0.00-0.23); BASOPHILS PERCENT AUTO 0 % (0-2); EOSINOPHILS ABSOLUTE AUTO 0.00 K/mm3 (0.00-0.68); EOSINOPHILS PERCENT AUTO 0 % (0-6); Hematocrit 49.4 % (33.0-51.0); Hemoglobin 15.6 g/dL (11.5-16.0); IMMATURE GRAN ABSOLUTE AUTO 0.06 K/mm3 (0.00-0.10); IMMATURE GRAN PERCENT AUTO 1 % (0-1); LYMPHOCYTES ABSOLUTE AUTO 1.70 K/mm3 (0.84-5.20); LYMPHOCYTES PERCENT AUTO 14 % (21-46); MONOCYTES ABSOLUTE AUTO 0.39 K/mm3 (0.16-1.47); MONOCYTES PERCENT AUTO 3 % (4-13); Mean Corpuscular HGB Conc 31.6 g/dL (31.5-36.5); Mean Corpuscular Volume 90 fL (80-100); NEUTROPHILS ABSOLUTE AUTO 9.67 K/mm3 (1.96-9.15); NEUTROPHILS PERCENT AUTO 82 % (41-73); NRBC ABSOLUTE 0.00 K/mm3 (0.00-0.02); NRBC Auto 0.0 /100 WBC (0.0-0.2); Platelet Count 397 K/mm3 (150-400); RDW Coefficient Variation 13.9 % (11.7-14.2); RDW Standard Deviation 45.5 fL (35.1-46.3)
[2025-03-25 04:07] LABS: Anion Gap 9.0 mmol/L (3-11); Blood Urea Nitrogen 17.0 mg/dL (8-24); CO2, Blood 27.0 mmol/L (21-32); Calcium, Blood 9.4 mg/dL (8.5-10.1); Chloride, Blood 105.0 mmol/L (98-108); Creatinine, Blood 0.58 mg/dL (0.40-1.00); Glucose, Blood 200.0 mg/dL (70-99); Potassium, Blood 4.2 mmol/L (3.5-5.5); Sodium, Blood 137.0 mmol/L (136-145)
[2025-03-25 05:04] LABS: pH Blood Arterial 7.44 (7.35-7.45)
--- NOTE | 2025-03-25 06:31 | NUR ---
SHIFT SUMMARY PT REMAINS INTUBATED AND SEDATED, RAAS -2. OPENING EYES TO VERBAL STIM AND CAN NOD/SHAKE HEAD TO QUESTIONS. INTERMITTENTLY PAINFUL AND AGITATED, MEDICATED PER MAR NEEDED. SINUS ADAM ON MONITOR WITH RATE IN THE 40S-50S. BP REMAINS STABLE, BRIEF PERIOD OF MAP 63 OTHERWISE REMAINING >65. SATS REMAIN >93%. VENT SETTINGS AC/VC 16/400/10/50% FIO2. MARKED LOWER FACIAL AND LIP SWELLING STILL PRESENT. PROPOFOL INFUSING VIA PIV -SEE FLOWSHEET. CALL LIGHT WITHIN REACH.
[2025-03-25] MEDS ORDERED: Magnesium Sulf 2 GM/Water 50ML 50 ML IV ONE (08:50)
[2025-03-25] MEDS ORDERED: Doxycycline Hyclate 100 MG in Dextrose 5% 250 ML IV SCH (09:00)
--- NOTE | 2025-03-25 11:57 | NUR ---
ASSUMPTION OF CARE RECEIVED REPORT FROM [facility] NURSE. PT INTUBATED D/T ANGIOEDEMA, VENT SETTINGS AT 16/400/10/50% FIO2, 02> 90%. PT FOLLOWS COMMANDS AND IS ABLE TO WRITE DOWN REQUESTS. LUNG SOUNDS CLEAR T/O. HR IN 40-50S, MAP >65. TWO PIVS, RFA AND LAC. CROOK CATH IN PLACE AND DRAINING TO GRAVITY. HYPERACTIVE BOWEL TONES, MODERATE DISTENTION WITH MORE FIRMNESS IN THE RLQ.
--- NOTE | 2025-03-25 12:06 | NUR ---
SBT AND EXTUBATION 1136 - PT BEGAN SBT, 11/02/35% FIO2. PT TOLERATING WELL, O2 >92%. 1150 - PT EXTUBATED, TOLERATING WELL. PT ON 4L NC, 02> 92%. PT DENIES SOB. PT ABLE TO VOCALIZE NEEDS. FACIAL SWELLING HAS IMPROVED. NO FURTHER NEEDS EXPRESSED AT THIS TIME. CALL LIGHT WITHIN REACH. STEPDAD AT BEDSIDE.
--- NOTE | 2025-03-25 17:26 | NUR ---
SHIFT SUMMARY PT WAS INTUBATED AND SEDATED AT ASSUMPTION OF CARE. PT HAD A RASS OF -1, SEDATED WITH PROP AT 35MCG/KG/HR. PT WAS TOLERATING VENTILATOR, O2> 92%. HR WAS IN 40S WHILE SEDATED, ECG PERFORMED AND NO ABNORMALITIES NOTED BESIDES BRADYCARDIA. MAP >65. PT PASSED SBT AND SAT, PT WAS EXTUBATED AT 1150 AND PLACED ON 4L NC, O2> 92%. TITRATED DOWN TO 2L NC, SATS MAINTAINING. TWO PIVS AT ASSUMPTION OF CARE, RAC AND LAC. LAC WAS DC'D, RFA AND LFA PIVS WERE PLACED. CROOK CATH WAS IN PLACE AND DRAINING TO [facility], WAS DC'D AT 1645. ONCE PROPOFOL WAS DC'D AND PT WAS EXTUBATED, HR HAS BEEN IN 70-80S, MAP >65. BOWEL TONES ARE HYPERACTIVE, ABD MODERATELY DISTENDED AND FIRM WITH PALPITATION, PT REPORTS THAT THIS IS HER NORMAL D/T CHRONIC CONSTIPATION AND HER ANGIOEDEMA. FACIAL SWELLING HAS IMPROVED T/O SHIFT, PT REPORTS MINIMAL PAIN D/T SWELLING. PT HAS CHRONIC BACK PAIN, RX HOME MEDS. PT ABLE TO AMBULATE TO CHAIR WITH ASSISTANCE. STEPDAD AT BEDSIDE. CALL LIGHT WITHIN REACH AND NO NEEDS EXPRESSED AT THIS TIME.
--- NOTE | 2025-03-25 18:45 | NUR ---
HOME MEDS IN LOCK BOX PT INFORMED US SHE HAD HOME MEDICATIONS IN HER PURSE, GAVE US PERMISSION TO TAKE THE MEDICATIONS FROM HER PURSE AND PLACE IN THE LOCKED BOX. THE MEDICATIONS ARE ONE BOTTLE OF HYDROCODONE AND ONE BOTTLE OF BUPRENORPHINE.
[2025-03-25] MEDS ORDERED: HYDROcodone 10-APAP 325 TAB PO PRN (20:05)
--- NOTE | 2025-03-25 21:28 | NUR ---
ASSUMPTION OF CARE ASSUMED CARE OF PT AT 1900. PT HAS BEEN EXTUBATED DURING DAY SHIFT AND IS ON 2L NC WITH SATS >93%. HR IS SINUS RHYTHM ON MONITOR WITH RATE IN THE HIGH 60S. BP STABLE WITH MAP >65. PT IS ALERT AND ORIENTED X4. EDEMA OF LOWER FACE AND MOUTH APPEARS MARKEDLY IMPROVED SINCE LAST SHIFT. CROOK CATH HAS BEEN REMOVED AND PT ABLE TO USE BEDSIDE COMMODE WITH STANDY ASSIST. BILATERAL WRIST PIV IN PLACE AND SALINE LOCKED. DENIES UNMET NEEDS AT THIS TIME, CALL LIGHT WITHIN REACH.
[2025-03-26] VITALS (10 sets, daily range): BP systolic 133–192; BP diastolic 75–101
[2025-03-26 03:25] LABS: BASOPHILS ABSOLUTE AUTO 0.02 K/mm3 (0.00-0.23); BASOPHILS PERCENT AUTO 0 % (0-2); EOSINOPHILS ABSOLUTE AUTO 0.01 K/mm3 (0.00-0.68); EOSINOPHILS PERCENT AUTO 0 % (0-6); Hematocrit 46.7 % (33.0-51.0); Hemoglobin 15.0 g/dL (11.5-16.0); IMMATURE GRAN ABSOLUTE AUTO 0.07 K/mm3 (0.00-0.10); IMMATURE GRAN PERCENT AUTO 1 % (0-1); LYMPHOCYTES ABSOLUTE AUTO 1.11 K/mm3 (0.84-5.20); LYMPHOCYTES PERCENT AUTO 8 % (21-46); MONOCYTES ABSOLUTE AUTO 0.41 K/mm3 (0.16-1.47); MONOCYTES PERCENT AUTO 3 % (4-13); Mean Corpuscular HGB Conc 32.1 g/dL (31.5-36.5); Mean Corpuscular Volume 89 fL (80-100); NEUTROPHILS ABSOLUTE AUTO 12.74 K/mm3 (1.96-9.15); NEUTROPHILS PERCENT AUTO 89 % (41-73); NRBC ABSOLUTE 0.00 K/mm3 (0.00-0.02); NRBC Auto 0.0 /100 WBC (0.0-0.2); Platelet Count 374 K/mm3 (150-400); RDW Coefficient Variation 13.9 % (11.7-14.2); RDW Standard Deviation 45.4 fL (35.1-46.3)
[2025-03-26 03:39] LABS: Anion Gap 8.0 mmol/L (3-11); Blood Urea Nitrogen 20.0 mg/dL (8-24); CO2, Blood 29.0 mmol/L (21-32); Calcium, Blood 9.3 mg/dL (8.5-10.1); Chloride, Blood 105.0 mmol/L (98-108); Creatinine, Blood 0.58 mg/dL (0.40-1.00); Glucose, Blood 195.0 mg/dL (70-99); Potassium, Blood 4.5 mmol/L (3.5-5.5); Sodium, Blood 137.0 mmol/L (136-145)
--- NOTE | 2025-03-26 06:37 | NUR ---
SHIFT SUMMARY PATIENT REMAINS A&O X4, HR IS SINUS ADAM WITH A RATE OF 50 ON MONITOR, BP REMAINS STABLE WITH MAP >65, SATS >93% ON 2L NC. PT IS ABLE TO AMBULATE TO BEDSIDE COMMODE NEEDED WITH ASSITANCE FOR REMOVING LINES AND MONITORING EQUIPMENT. ORDERS PLACED FOR PAIN MEDICATION BASED ON HOME PRESCRIPTON, SEE MAR. PT HAD 2 OCCURANCES OF CHRONIC BACK PAIN KEEPING HER AWAKE, REPOSITIONED AND MEDICATED PER AUG. PT ENDORSES DESIRE TO GO HOME TODAY IF POSSIBLE STATING "I AM FEELING SO MUCH BETTER AND MISS MY PETS". DENIES UNMET NEEDS AT THIS TIME, CALL LIGHT WITHIN REACH.
--- NOTE | 2025-03-26 07:00 | NUR ---
ASSUMPTION OF CARE PT IS ALERT AND ORIENTED. SHE IS ON 2L NC. ATTEMPTED TO RETURN TO RA BUT EVENTUALLY DESAT TO 87%, PLACED BACK ON 2L. REPORTS THAT SHE FEELS AT HER BASELINE AND THAT HER SWELLING IS GONE. HOSPITALIST ROUNDED AND PLAN TO TRANSTIION TO MED AND DISCONTINUE TELEMETRY. BED IN LOW POSITION, CALL LIGHT WITHIN REACH.
--- NOTE | 2025-03-26 15:53 | NUR ---
FOLLOW UP APPT FOLLOW UP APPT WITH PCP SCHEDULED BY CARE MANAGEMENT. MONDAY 04/02 AT 1100
--- NOTE | 2025-03-26 18:17 | NUR ---
SHIFT SUMMARY PT IS ALERT AND ORIENTED WITH PLEASANT AFFECT. SHE IS ON 2L NC. SHE HAS DENIED SOB THROUGHOUT THE DAY. DENIES CP. MAP REMAINED >65. TOLERATED PO INTAKE WELL. SHE VOIDED MULTIPLE TIMES TODAY AND HAD A BM THIS EVENING. SHE HAS BEEN AMBULATING AROUND THE ROOM WITH CORD MANAGEMENT. BED IN LOW POSITION, CALL LIGHT WITHIN REACH.
[2025-03-26] MEDS ORDERED: Magnesium Citrate 300 ML BTL PO PRN (18:55)
[2025-03-26] MEDS ORDERED: Polyethylene Glycol 3350 17 gm PO PRN (19:00)
--- NOTE | 2025-03-26 22:40 | NUR ---
ASSUMPTION OF CARE ASSUMED CARE OF PT APPROX 191. PT RECLINING IN BED WATCHING TELEVSION. REMAINS A&0 X4, ANSWERS QUESTIONS APPROPRIATELY. SATS >92% ON 2L NC. PT IS INDEPENDENT IN THE ROOM, ABLE TO AMBULATE TO BEDSIDE COMMODE NEEDED. PATIENT EXPRESSES DESIRE TO GO HOME TOMORROW WHICH IS CONSISTENT WITH PLAN OF CARE/PLAN FOR DISCHARGE. DENIES UNMET NEEDS AT THIS TIME, CALL LIGHT WITHIN REACH.
[2025-03-27 03:48] LABS: BASOPHILS ABSOLUTE AUTO 0.01 K/mm3 (0.00-0.23); BASOPHILS PERCENT AUTO 0 % (0-2); EOSINOPHILS ABSOLUTE AUTO 0.00 K/mm3 (0.00-0.68); EOSINOPHILS PERCENT AUTO 0 % (0-6); Hematocrit 49.7 % (33.0-51.0); Hemoglobin 15.6 g/dL (11.5-16.0); IMMATURE GRAN ABSOLUTE AUTO 0.09 K/mm3 (0.00-0.10); IMMATURE GRAN PERCENT AUTO 1 % (0-1); LYMPHOCYTES ABSOLUTE AUTO 1.30 K/mm3 (0.84-5.20); LYMPHOCYTES PERCENT AUTO 12 % (21-46); MONOCYTES ABSOLUTE AUTO 0.35 K/mm3 (0.16-1.47); MONOCYTES PERCENT AUTO 3 % (4-13); Mean Corpuscular HGB Conc 31.4 g/dL (31.5-36.5); Mean Corpuscular Volume 91 fL (80-100); NEUTROPHILS ABSOLUTE AUTO 9.34 K/mm3 (1.96-9.15); NEUTROPHILS PERCENT AUTO 84 % (41-73); NRBC ABSOLUTE 0.00 K/mm3 (0.00-0.02); NRBC Auto 0.0 /100 WBC (0.0-0.2); Platelet Count 351 K/mm3 (150-400); RDW Coefficient Variation 13.9 % (11.7-14.2); RDW Standard Deviation 46.1 fL (35.1-46.3)
[2025-03-27 04:08] LABS: Alanine Aminotransfer (ALT/SGP 48.0 U/L (12-78); Albumin, Blood 3.7 g/dL (3.4-5.0); Albumin/Globulin Ratio 1.2 (0.8-1.8); Anion Gap 6.0 mmol/L (3-11); Aspartate Aminotrans (AST/SGOT 22.0 U/L (12-37); Bilirubin, Total 0.5 mg/dL (0.1-1.0); Blood Urea Nitrogen 24.0 mg/dL (8-24); CO2, Blood 30.0 mmol/L (21-32); Calcium, Blood 9.6 mg/dL (8.5-10.1); Chloride, Blood 102.0 mmol/L (98-108); Creatinine, Blood 0.62 mg/dL (0.40-1.00); Globulin, Blood 3.2 g/dL (2.2-4.0); Glucose, Blood 221.0 mg/dL (70-99); Potassium, Blood 4.2 mmol/L (3.5-5.5); Sodium, Blood 134.0 mmol/L (136-145); Total Protein, Blood 6.9 g/dL (6.4-8.2)
--- NOTE | 2025-03-27 06:07 | NUR ---
SHIFT SUMMARY PT RESTING IN BED AT THIS TIME. REMAINS A&0 X4, ANSWERS QUESTIONS APPROPRIATELY. VSS THIS SHIFT, HR IN THE 50S, BP STABLE WITH MAP >65, SATS >95% ON 2L NC. PT REMAINS INDEPENDENT IN THE ROOM, AMBULATES TO BSC, CONTINUES TO EXPRESS DESIRE TO GO HOME TODAY. NO ACUTE CHANGES OVERNIGHT, PT WAS AWAKE FOR MAJORITY OF COLLISION REPAIR TECHNICIAN, FALLING ASLEEP APPROX 0300. ABLE TO EXPRESS NEEDS, CALL LIGHT WITHIN REACH.
[2025-03-27 08:06] VITALS: BP 155/87
[2025-03-27] MEDS ORDERED: DULoxetine HCL 60 MG Capsule DR PO SCH (09:00)
[2025-03-27] MEDS ORDERED: SULTRIDS PO (11:08)
[2025-03-27] MEDS ORDERED: DIPH25 PO (11:08)
[2025-03-27] MEDS ORDERED: FAMO20 PO (11:09)
[2025-03-27 12:01] VITALS: BP 175/96
--- NOTE | 2025-03-27 12:30 | NUR ---
DISCHARGE SUMMARY: A/O X4, ABLE TO MAKE NEEDS KNOWN, USES CALL LIGHT APPROPRIATELY. SPO2 >90% ON RA, RT CAME TO BEDSIDE FOR A HOME O2 EVAL, NO HOME O2 WAS ORDERED, PT REMAINS ASYMPTOMATIC AND DENIES SOB, BREATHING IS EVEN AN UNLABORED. SBP >170, MD LAMB NOTIFIED, ONE TIME ORDER PLACED PER EMAR, STATED NO NEED TO CONTINUE MED UPON DC AND PT STILL APPROPRIATE TO DC HOME, PT DENIES CHEST PAIN OR PRESSURE AND ENDORSED A STRONG DESIRE TO DC HOME. PT ATE LUNCH, STEP FATHER CAME TO GAS PUMPER, LEFT THE UNIT AT 1230 IN A WC WITH ALL BELONGINGS.
== END 2025-03-27 12:35 | disposition home or self-care (01) | DRG 642 ==
LOC: ER 22:05 → ICUE 22:33
PROVIDERS: Emergency Medicine; Internal Medicine Critical Care Medicine; Student in an Organized Health Care Education/Training Program; ADMIT Internal Medicine
PROC: 3E03329 Introduction of Other Anti-infective into Peripheral Vein, Percutaneous Approach (ICD-10-PCS; principal; 2025-03-23)
PROC: 5A1945Z Respiratory Ventilation, 24-96 Consecutive Hours (ICD-10-PCS; 2025-03-23)
PROC: 0BH17EZ Insertion of Endotracheal Airway into Trachea, Via Natural or Artificial Opening (ICD-10-PCS; 2025-03-23)
DX: D84.1 Defects in the complement system (principal); J96.22 Acute and chronic respiratory failure with hypercapnia; J18.9 Pneumonia, unspecified organism; J96.01 Acute respiratory failure with hypoxia; G89.29 Other chronic pain; F32.A Depression, unspecified; R94.31 Abnormal electrocardiogram [ECG] [EKG]; M19.90 Unspecified osteoarthritis, unspecified site; Z98.890 Other specified postprocedural states; Z90.89 Acquired absence of other organs; Z88.7 Allergy status to serum and vaccine; Z79.899 Other long term (current) drug therapy; Z87.891 Personal history of nicotine dependence
CPT/HCPCS: 0528U; 31500; 36415; 36600; 51702; 71045; 80048; 80053; 82803; 83605; 83880; 84484; 85025; 93005; 93010; 94002; 94003; 94761; 94762; 96374-59; 96375-59; 97116; 97161; 97530; 99285-25; A9270; J0456; J0597; J0696; J1200; J1650; J2060; J2250; J2704; J2919; J3010; J3475; J7030; J7050; J7060